=== PATIENT | male | born 1965 | race Caucasian/White ===

== ENCOUNTER 2022-05-05 17:03 | Emergency (ER) | payer OTHER, SELFPAY ==
[2022-05-05 17:15] VITALS: BP 156/83; PULSE 58; RESP 16; TEMP 36.4; O2SAT 99
--- NOTE | 2022-05-05 17:24 | ED.SKABFB ---
HPI - Skin/Abscess/Foreign Bdy General Chief complaint: Skin/Abscess/Foreign Body Stated complaint: shingles Time Seen by Provider: 05/05/22 17:17 Source: patient Mode of arrival: ambulatory Limitations: no limitations History of Present Illness HPI narrative: Patient presents today complaining of left flank and low back pain x1 week with rash that was noted upon waking this morning. Describes the pain as [id number] and is intermittent in quality. He currently rates his pain 7/10. He has been taking Tylenol without relief. Related Data Allergies Allergy/AdvReac Type Severity Reaction Status Date / Time procaine Allergy Unknown Facial Verified 05/05/22 17:05 swelling Review of Systems Review of Systems: CONSTITUTIONAL: Denies body aches, fever, chills, or sweats. EYES: Denies visual changes, redness, or discharge. ENT: Denies rhinorrhea, congestion, sore throat, or otalgia. CARDIOVASCULAR: Denies chest pain, palpitations, or edema. RESPIRATORY: Denies cough or dyspnea. GASTROINTESTINAL: Denies abdominal pain, nausea, vomiting, or diarrhea. GENITOURINARY: Denies dysuria or hematuria. SKIN: + Painful rash to left flank MUSCULOSKELETAL: Denies back pain, joint pain, or myalgia. NEUROLOGIC: Denies headache, numbness, tingling, or weakness. PSYCH: Denies depression or anxiety. [facility] Family History Family History Father Hypertension Social History Social History Alcohol intake: current Comments At time of signature, I have reviewed and agree with nursing past medical, surgical, social and family history unless otherwise noted. Please see nursing chart for further information. There is no relevant family history pertinent to the presenting complaint Exam Narrative: GENERAL: Well-appearing, well-nourished, and in no acute distress. HEAD: Normocephalic, atraumatic. EYES: EOMI. No redness or drainage. Conjunctivae normal. ENT: Mucous membranes pink and moist. NECK: Normal AROM. CHEST: No respiratory distress. EXTREMITIES: Normal range of motion. No edema. SKIN: Warm, dry. Capillary refill normal. Normal skin turgor.+ Large patch of erythematous vesicles in a dermatomal distribution to the left flank and mid back. NEURO: No focal deficits. Alert and oriented x3. Gait steady. PSYCH: Normal affect. No signs of depression or anxiety. Course Course Level of Care: Express Care Visit Vital Signs Vital signs: Vital Signs Temperature 97.6 F 05/05/22 17:15 Pulse Rate 58 L 05/05/22 17:15 Respiratory Rate 16 05/05/22 17:15 Blood Pressure 156/83 H 05/05/22 17:15 Pulse Oximetry 99 05/05/22 17:15 Oxygen Delivery Room Air 05/05/22 17:15 Temperature 97.6 F 05/05/22 17:15 Pulse Rate 58 L 05/05/22 17:15 Respiratory Rate 16 05/05/22 17:15 Blood Pressure 156/83 H 05/05/22 17:15 Pulse Oximetry 99 05/05/22 17:15 Oxygen Delivery Room Air 05/05/22 17:15 Reviewed. Pt has been instructed to follow up with his PCP regarding his elevated blood pressure today. MDM - Skin/Abscess/Foreign Bdy Differential Diagnosis Differential diagnosis: Likely viral exanthem, herpes zoster, cellulitis, impetigo and contact dermatitis Critical Care Time Critical Care Time Critical Care Time: No Discharge Plan Discharge Clinical Impression: Herpes zoster Qualifiers: Herpes zoster complications: without complications Qualified Code(s): B02.9 - Zoster without complications Patient Disposition: Home, Self-Care Condition: Stable Instructions: Shingles (ED) Additional Instructions: You have been diagnosed with shingles. Please take the Valtrex as prescribed. Take the Portal for severe pain. Take Tylenol or ibuprofen for mild pain, if able. Follow-up with your doctor in 1 week if symptoms are not improved. Your blood pressure was elevated above 120/80 today at [facility]
== END 2022-05-05 17:35 | disposition home or self-care (01) ==
PROVIDERS: Emergency Provider Nurse Practitioner
DX: R21 Rash and other nonspecific skin eruption (principal); B02.9 Zoster without complications
CPT/HCPCS: 99213; G0463

== ENCOUNTER 2022-10-15 10:36 | Emergency (ER) | payer OTHER, SELFPAY ==
[2022-10-15 10:49] VITALS: BP 155/97; PULSE 71; RESP 17; TEMP 36.2; O2SAT 100
--- NOTE | 2022-10-15 14:01 | ED.BACK ---
HPI - Back Pain/Injury General Chief Complaint: Back Pain/Injury Stated Complaint: sciatic nerve pain, left sided back pain Time Seen by Provider: 10/15/22 13:08 History of Present Illness HPI Narrative: 56-year-old male here for evaluation of left lower back pain for the past several days. Reports it is a sharp stabbing pain that radiates down his posterior left lower extremity. Denies any incontinence or retention of bowel or bladder. No saddle anesthesia. He has attempted [place] and ibuprofen with relief of his symptoms but they are still persistent. He states that he has been working a lot in his barn and believes that this might have triggered it. No direct trauma to the back. Related Data Allergies Allergy/AdvReac Type Severity Reaction Status Date / Time procaine Allergy Unknown Facial Verified 10/15/22 13:28 swelling Review of Systems Review of Systems: Gen.: Denies fevers or chills Eyes: Denies eye pain or visual change ENT: Denies congestion Respiratory: Denies shortness of breath or cough CV: Denies chest pain or palpitations GI: Denies abdominal pain nausea, emesis or diarrhea denies burning, urgency, frequency or hematuria Musculoskeletal: Reports back pain. Neuro: Denies numbness, tingling, weakness or focal weakness Skin: Denies rash Except as documented, all other systems reviewed and negative PMFSH Family History Family History Father Hypertension Social History Social History Alcohol intake: current Exam Narrative: APPEARANCE: Well appearing, no pain in distress, well-nourished. Head: Normocephalic and atraumatic. EYES: PERRLA/EOMI, conjunctivae clear NOSE: No nasal drainage EARS: External ear normal in appearance THROAT: Oropharynx is clear. Mucous membranes are moist. NECK: Supple. No adenopathy, no masses. RESPIRATORY: Airway patent, respirations nonlabored. Clear to auscultation bilaterally, no rales, rhonchi, wheezing. CARDIOVASCULAR: Regular rate and rhythm without murmurs, rubs, or gallops. ABDOMINAL: Normoactive bowel sounds. Soft, nontender, nondistended. No rebound tenderness or guarding. MUSCULOSKELETAL: Straight leg raise positive on the left. No bony tenderness to palpation along C, T or L-spine. Area of patient's pain is in the left paraspinal lumbar region. Normal gait. 5 out of 5 strength in bilateral lower extremities. Extremities are warm and well-perfused. Moves all extremities well. No edema. NEURO: Normal speech. No focal neurologic deficits. SKIN: Skin is warm and dry. No rashes. PSYCHIATRIC: Normal affect/mood.. Course Vital Signs Vital signs: Vital Signs Temperature 97.1 F L 10/15/22 10:49 Pulse Rate 71 10/15/22 10:49 Respiratory Rate 17 10/15/22 10:49 Blood Pressure 155/97 H 10/15/22 10:49 Pulse Oximetry 100 10/15/22 10:49 Oxygen Delivery Room Air 10/15/22 10:49 Temperature 97.1 F L 10/15/22 10:49 Pulse Rate 71 10/15/22 10:49 Respiratory Rate 17 10/15/22 10:49 Blood Pressure 155/97 H 10/15/22 10:49 Pulse Oximetry 100 10/15/22 10:49 Oxygen Delivery Room Air 10/15/22 10:49 MDM - Back Pain/Injury MDM Narrative Medical decision making narrative: 56-year-old male here for evaluation of left low back pain that radiates down his leg. Vital signs are normal, no bony tenderness to palpation along spine, straight leg raise is positive on the left. Likely sciatica. No back pain red flags on history or physical. Presentation not consistent with malignancy (lack of history of malignancy, lack of B symptoms), fracture (no trauma, no bony tenderness to palpation), cauda equina (no bowel or urinary incontinence/retention, no saddle anesthesia, no distal weakness), AAA, viscus perforation, osteomyelitis or epidural abscess (no IVDU, vertebral tenderness), renal colic, pyelonephritis (afebrile, no CVAT, no u
[2022-10-15] MEDS: ACETAMINOPHEN 325 MG TABLET 650 MG PO (14:07)
[2022-10-15] MEDS: LIDOCAINE 5% PATCH 1 PATCH TRANSDERM (14:08)
== END 2022-10-15 15:00 | disposition home or self-care (01) ==
PROVIDERS: Emergency Provider Physician Assistant; PCP Family Medicine
DX: M54.42 Lumbago with sciatica, left side (principal)
CPT/HCPCS: 96372; 99283; A9270; J1100

== ENCOUNTER 2025-05-28 16:59 | Emergency (ER) | payer OTHER, SELFPAY ==
[2025-05-28 17:12] VITALS: BP 149/85; PULSE 106; RESP 18; TEMP 37.7; O2SAT 98
--- NOTE | 2025-05-28 17:50 | ED_ITS ---
HPI - Dental/Oral General Chief complaint: Dental/Oral Stated complaint: Swollen Left Cheek Time Seen by Provider: 05/28/25 17:50 Source: patient Mode of arrival: ambulatory Limitations: no limitations History of Present Illness HPI Narrative: 59-year-old male presents with left lower dental pain with swelling to left jaw and cheek x 5 days. Currently does not have a dentist. Afebrile. Reports body aches and fatigue. All systems reviewed and negative except as noted above. Related Data Allergies Allergy/AdvReac Type Severity Reaction Status Date / Time procaine Allergy Unknown Facial Verified 05/28/25 17:18 swelling PMFSH Family History Family History Father Hypertension Social History Social History Alcohol intake: current Comments At time of signature, agree with nursing past medical, surgical, social and family history. There is no relevant family history pertinent to the presenting complaint. Exam Narrative: GENERAL: This is a well-nourished, well-developed patient, in no apparent distress. HEAD: normocephalic, atraumatic. EYES: PERRL. Sclera clear/white. Vision is grossly intact. EARS: External ears normal NOSE: External nose normal MOUTH: swelling and erythema with tenderness to tooth/gums #18 NECK: Neck supple, non-tender without lymphadenopathy, masses or thyromegaly. CARDIOVASCULAR: Regular rate and rhythm without murmurs, gallops, or rubs. RESPIRATORY: Clear to auscultation. Breath sounds equal bilaterally. No wheezes, rales, or rhonchi. SKIN: warm, Dry, intact with no suspicious lesions or rash, good texture and turgor. NEURO: awake, alert, and oriented to person, place and time. There were no obvious focal neurologic abnormalities. EXTREMITIES: No joint tenderness, effusion, or edema noted. Course Course Level of Care: Express Care Visit Vital Signs Vital signs: Vital Signs Temperature 37.7 C H 05/28/25 17:12 Pulse Rate 106 H 05/28/25 17:12 Respiratory Rate 18 05/28/25 17:12 Blood Pressure 149/85 H 05/28/25 17:12 Pulse Oximetry 98 05/28/25 17:12 Oxygen Delivery Room Air 05/28/25 17:12 Temperature 37.7 C H 05/28/25 17:12 Pulse Rate 106 H 05/28/25 17:12 Respiratory Rate 18 05/28/25 17:12 Blood Pressure 149/85 H 05/28/25 17:12 Pulse Oximetry 98 05/28/25 17:12 Oxygen Delivery Room Air 05/28/25 17:12 Reviewed MDM - Dental/Oral MDM Narrative Medical decision making narrative: will treat left lower dental infection with clindamycin. Recommend patient follow-up with dentist at next available appointment. Differential Diagnosis Differential diagnosis: Likely dental caries and toothache Discharge Plan Discharge Clinical Impression: Dental infection Patient Disposition: Home Condition: Stable Instructions: Antibiotic Form, Dental Abscess (ED) Patient Language: Turkmen Prescriptions: New clindamycin HCl [Cleocin HCl] 300 mg capsule 300 mg PO Q6H 10 Days Qty: 40 0RF ibuprofen 600 mg tablet 600 mg PO Q6H PRN (Reason: pain) Qty: 30 0RF Follow-up/Referrals: Jimbo Chávez MD [Primary Care Provider, Family Practice] Stand Alone Forms: Work/School Release IP Time of Disposition: 17:56
== END 2025-05-28 18:08 | disposition home or self-care (01) ==
PROVIDERS: Emergency Provider Nurse Practitioner Family; PCP Family Medicine
DX: K04.7 Periapical abscess without sinus (principal)
CPT/HCPCS: 99213; G0463